=== PATIENT | female | born 1940 | race Caucasian/White ===

== ENCOUNTER 2018-08-20 21:47 | Emergency (ER) | payer OTHER ==
[~2018-08-20] VITALS: Ht 154.9 cm; Wt 67.1 kg
[2018-08-20] MEDS ORDERED: FAMOTIDINE 20 MG TAB PO ONE (22:15)
[2018-08-20] MEDS ORDERED: cloNIDine HCL 0.1 MG TAB PO ONE (22:15)
[2018-08-20 22:29] LABS: Basophils # (auto) 0 uL; Basophils % (auto) 0.5 % (0.0-2.0); Eosinophils # (auto) 0.4 uL; Eosinophils % (auto) 5.5 % (0.0-7.0); Hematocrit 42.9 % (36.0-46.0); Lymphocytes # (auto) 1.4 uL; Lymphocytes % (auto) 16.9 % (10.0-50.0); Mean Corpuscular Hemoglobin 31.6 pg (28.0-32.0); Mean Corpuscular Hgb Conc. 32.6 g/dL (32.0-36.0); Mean Corpuscular Volume 96.9 fL (80.0-100.0); Monocytes # (auto) 0.8 uL; Monocytes % (auto) 9.6 % (0.0-12.0); Neutrophils # (auto) 5.4 uL; Neutrophils % (auto) 67.5 % (37.0-80.0); Nucleated Red Blood Cells % 0.1 %; Platelet Count (auto) 197 10^3/uL (140-450); Red Blood Cells 4.43 10^6/uL (4.0-5.20); Red Cell Distribution Width 13.2 % (11.8-14.3)
[2018-08-20 22:46] LABS: Albumin 3.8 g/dL (3.4-5.0); Amylase 38 U/L (25-115); Anion Gap 8 (5-15); Blood Urea Nitrogen 21 mg/dL (7-18); Calcium 9.4 mg/dL (8.5-10.1); Carbon Dioxide 24 mmol/L (21-32); Chloride 109 mmol/L (98-107); Glucose 105 mg/dL (74-106); Lipase 84 U/L (73-393); Potassium 3.6 mmol/L (3.5-5.1); Sodium 141 mmol/L (136-145)
[2018-08-20 22:53] LABS: Alanine Aminotransferase 13 U/L (13-56); Alkaline Phosphatase 74 U/L (45-117); Aspartate Aminotransferase 14 U/L (15-37); BUN/Creatinine Ratio 27.6; Bilirubin, Total 0.8 mg/dL (0.2-1.0); GFR African American 95 mL/min; GFR Non-African American 79 mL/min; Total Protein 7.3 g/dL (6.4-8.2)
[2018-08-21 02:21] LABS: Urine Bacteria MANY /hpf (None Seen); Urine Blood Negative /uL (Negative); Urine Hyaline Cast FEW /lpf (0 - 2); Urine Mucus FEW (None Seen); Urine Specific Gravity 1.012 (1.001-1.035); Urine WBC 23 /hpf (0 - 5)
[2018-08-21] MEDS ORDERED: LABETALOL HCL 5 MG/ML ML 20ML VIAL IV ONE (02:30)
[2018-08-21] MEDS ORDERED: hydrALAZINE HCL 20 MG/ML VL IV ONE (04:15)
[2018-08-21 04:53] VITALS: BP 135/73
== END 2018-08-21 05:10 | disposition home or self-care (01) ==
LOC: ER 21:47
DX: N39.0 Urinary tract infection, site not specified (principal); K42.9 Umbilical hernia without obstruction or gangrene; K44.9 Diaphragmatic hernia without obstruction or gangrene; N28.1 Cyst of kidney, acquired; K59.00 Constipation, unspecified; I10 Essential (primary) hypertension; Z90.49 Acquired absence of other specified parts of digestive tract
CPT/HCPCS: 36415; 74176; 80053; 81001; 82150; 83690; 84484; 85025; 96374; 96375; 99284; J0360

== ENCOUNTER 2019-04-17 17:11 | Emergency (ER) | payer OTHER ==
[~2019-04-17] VITALS: Ht 157.5 cm; Wt 68.0 kg
[2019-04-17 22:00] VITALS: BP 145/61
== END 2019-04-17 22:12 | disposition home or self-care (01) ==
LOC: ER 17:16
DX: M79.642 Pain in left hand (principal); I10 Essential (primary) hypertension; M79.18 Myalgia, other site; Z90.49 Acquired absence of other specified parts of digestive tract

== ENCOUNTER 2020-04-21 17:02 | Inpatient (IN) | payer OTHER ==
[~2020-04-21] VITALS: Ht 160 cm; Wt 75.3 kg
[2020-04-21 18:27] LABS: Basophils # (auto) 0.1 10 ^3/uL (0-0.2); Basophils % (auto) 0.8 % (0.0-2.0); Eosinophils # (auto) 0.2 10 ^3/uL (0-0.8); Eosinophils % (auto) 2.1 % (0.0-7.0); Hematocrit 39.4 % (36.0-46.0); Hemoglobin 13.1 g/dL (12.2-16.2); Lymphocytes % (auto) 11.3 % (10.0-50.0); Mean Corpuscular Hemoglobin 30.3 pg (28.0-32.0); Mean Corpuscular Hgb Conc. 33.1 g/dL (32.0-36.0); Mean Corpuscular Volume 91.5 fL (80.0-100.0); Monocytes # (auto) 1.2 10 ^3/uL (0-1.3); Monocytes % (auto) 13.9 % (0.0-12.0); Neutrophils # (auto) 6.2 10 ^3/uL (1.6-8.6); Neutrophils % (auto) 71.9 % (37.0-80.0); Platelet Count (auto) 224 10^3/uL (140-450); Red Blood Cells 4.31 10^6/uL (4.0-5.20); Red Cell Distribution Width 13.9 % (11.8-14.3); White Blood Cell 8.7 10^3/uL (4.4-10.8)
[2020-04-21] MEDS ORDERED: PIPERACILLIN-TAZOB 3.375GM 100 ML IV ONE (18:30)
[2020-04-21] MEDS ORDERED: SODIUM CHLORIDE 0.9% 1,000 ML IV ONE ×2 (18:30→22:45)
[2020-04-21 18:42] LABS: INR 1.05 (0.9-1.15); Partial Thromboplastin Time 26.6 sec (23.0-31.2)
[2020-04-21 18:48] LABS: Albumin 3.3 g/dL (3.4-5.0); Anion Gap 7 (5-15); Blood Urea Nitrogen 35 mg/dL (7-18); Calcium 9.2 mg/dL (8.5-10.1); Carbon Dioxide 23 mmol/L (21-32); Chloride 109 mmol/L (98-107); Glucose 97 mg/dL (74-106); Magnesium 2.4 mg/dL (1.6-2.6); Potassium 3.7 mmol/L (3.5-5.1); Sodium 139 mmol/L (136-145)
[2020-04-21 18:56] LABS: Alanine Aminotransferase 26 U/L (13-56); Alkaline Phosphatase 82 U/L (45-117); Aspartate Aminotransferase 20 U/L (15-37); BUN/Creatinine Ratio 36.8; Bilirubin, Total 0.7 mg/dL (0.2-1.0); Blood Alcohol < 3.0 mg/dL (0-5); GFR African American 73 mL/min; GFR Non-African American 61 mL/min; Total Protein 6.4 g/dL (6.4-8.2)
[2020-04-21 20:07] LABS: Urine WBC None Seen /hpf (0 - 5)
[2020-04-21] MEDS ORDERED: IOHEXOL 350 MG/ML 100ML IJ ONE (20:27)
[2020-04-21 20:41] LABS: Alcohol, Urine < 3.0 mg/dL (0-10); Amphetamine Screen, Urine NEGATIVE (NEGATIVE); Barbiturate Scree,Urine NEGATIVE (NEGATIVE); Benzodiazephine Screen, Urine NEGATIVE (NEGATIVE); Cannabinoid Screen, Urine NEGATIVE (NEGATIVE); Cocaine Screen, Urine NEGATIVE (NEGATIVE); Opiate Scree,Urine NEGATIVE (NEGATIVE); Phencyclidine Screen, Urine NEGATIVE (NEGATIVE)
[2020-04-21 20:48] LABS: Urine Bacteria NONE SEEN /hpf (None Seen); Urine Blood Negative /uL (Negative); Urine Specific Gravity 1.023 (1.001-1.035)
[2020-04-21] MEDS ORDERED: DexAMETHasone SOD PHOS 10MG/1ML VIAL INJ IV ONE (22:30)
[2020-04-21] MEDS ORDERED: SODIUM CHLORIDE 0.9% 1,000 ML IV SCH (22:36)
[2020-04-21] MEDS ORDERED: DOCUSATE SOD 100 MG CAP PO PRN (22:45)
[2020-04-21] MEDS ORDERED: ONDANSETRON HCL 4 MG/2 ML VIAL IV PRN (22:45)
[2020-04-21] MEDS ORDERED: cefTRIAXone 1GM/50ML D5W 50 ML IV SCH (23:00)
[2020-04-22] MEDS ORDERED: LORazepam 2MG/ML-1ML VIAL IV ONE (06:15)
[2020-04-22 07:03] LABS: Calcium 9.2 mg/dL (8.5-10.1); Potassium 3.8 mmol/L (3.5-5.1)
[2020-04-22 07:06] LABS: BUN/Creatinine Ratio 39.1
[2020-04-22] MEDS: HALOPERIDOL LACTATE 5 MG/ML INJ VIAL IM PRN (07:30)
[2020-04-22] MEDS ORDERED: LORazepam 2MG/ML-1ML VIAL IV PRN (09:15)
[2020-04-22] MEDS: LISINOPRIL 5 MG TAB PO SCH (10:00)
[2020-04-22] MEDS ORDERED: ASPirin 81 mg TAB PO SCH (10:00)
[2020-04-22 10:14] LABS: Basophils # (auto) 0 10 ^3/uL (0-0.2); Basophils % (auto) 0.4 % (0.0-2.0); Eosinophils # (auto) 0 10 ^3/uL (0-0.8); Eosinophils % (auto) 0.1 % (0.0-7.0); Hematocrit 43.6 % (36.0-46.0); Hemoglobin 14.5 g/dL (12.2-16.2); Lymphocytes # (auto) 0.4 10 ^3/uL (0.4-5.4); Lymphocytes % (auto) 6.2 % (10.0-50.0); Mean Corpuscular Hemoglobin 30.6 pg (28.0-32.0); Mean Corpuscular Hgb Conc. 33.1 g/dL (32.0-36.0); Mean Corpuscular Volume 92.2 fL (80.0-100.0); Monocytes # (auto) 0.2 10 ^3/uL (0-1.3); Monocytes % (auto) 2.9 % (0.0-12.0); Neutrophils # (auto) 6.3 10 ^3/uL (1.6-8.6); Neutrophils % (auto) 90.4 % (37.0-80.0); Nucleated Red Blood Cells % 0.1 %; Platelet Count (auto) 222 10^3/uL (140-450); Red Blood Cells 4.73 10^6/uL (4.0-5.20); Red Cell Distribution Width 13.7 % (11.8-14.3); White Blood Cell 6.9 10^3/uL (4.4-10.8)
[2020-04-22 13:00] VITALS: BP 160/63
--- NOTE | 2020-04-22 15:38 | NUR ---
ADMISSION ASSESSMENT UNABLE TO COMPLETE ADMISSION ASSESSMENT INTERVENTIONS AT THIS TIME. PATIENT NOT ALERT OR ORIENTED. UNABLE TO REACH AT PHONE NUMBER PROVIDED IN CHART. WILL NOTIFY PRIMARY RN.
[2020-04-22 15:42] LABS: Folate (Folic Acid) 8.53 ng/mL (5.38-24)
--- NOTE | 2020-04-22 15:45 | NUR ---
EEG COMPLETED AT BEDSIDE. PRIMARY RN CARRIE DELUNA.
--- NOTE | 2020-04-22 16:06 | NUR ---
arrived to floor from ER approx. 1230. oriented to self only. received to room 214A , vss. sitter at bedside. continuing to monitor closely.
[2020-04-22 17:00] VITALS: BP 168/78
[2020-04-22] MEDS: ATORVASTATIN 20 MG TAB PO SCH (17:27)
--- NOTE | 2020-04-22 19:30 | NUR ---
RECEIVED PATIENT FROM DAY SHIFT RN. PATIENT RESTING IN BED WITH EYES CLOSED. NO S/S OF DISTRESS NOTED. WOKE PATIENT UP, DENIED PAIN AT THIS TIME. REORIENTED PATIENT ON TIME, PLACE, AND SITUATION. REORIENT NEEDED. POC INSTRUCTED AND ENCOURAGED PATIENT TO CALL FOR PATIENT CARE DIRECTOR IF NEEDED. BED IN LOWEST LOCKED POSITION WITH SIDE RAILS UP X 2 CALL [facility] WITHIN REACH. ALARM ON. SITTER AT BEDSIDE FOR SAFETY. CONTINUE TO MONITOR FOR CHANGES Q1H AND PRN.
[2020-04-22 22:00] VITALS: BP 124/77
[2020-04-22] MEDS: APIXABAN 2.5 MG TAB PO SCH (22:07)
--- NOTE | 2020-04-22 22:35 | NUR ---
ORAL MEDICATIONS GIVEN ORDERED. PATIENT SWALLOWED WELL. NO S/S OF ASPIRATION NOTED. CONTINUE TO MONITOR.
--- NOTE | 2020-04-23 03:16 | NUR ---
PATIENT SLEEPING. NO S/S OF DISTRESS NOTED. WARREN CATH IN PLACE DRAINING TO GRAVITY. SITTER AT BEDSIDE FOR SAFETY. CONTINUE TO MONITOR.
[2020-04-23] MEDS: ACETAMINOPHEN 325 MG TAB PO PRN ×2 (04:45→14:34)
--- NOTE | 2020-04-23 04:45 | NUR ---
PATIENT'S FEVER 102.6. MEDICATED PATIENT ORDERED. ICE PACKS AND COOLING MEASURE APPLIED. CONTINUE TO MONITOR. Addendum: 04/23/20 at 0617 by Arielle Andersen RN WRONG NOTES
[2020-04-23 05:00] VITALS: BP 143/72
[2020-04-23 08:00] VITALS: BP 156/75
[2020-04-23] MEDS: APIXABAN 2.5 MG TAB PO SCH ×2 (09:34→22:10)
[2020-04-23] MEDS: LISINOPRIL 5 MG TAB PO SCH ×2 (09:34→22:10)
--- NOTE | 2020-04-23 11:51 | NUR ---
PT STEP DAUGHTER TERESITA VALLADARES [phone]
[2020-04-23 13:00] VITALS: BP 134/71
[2020-04-23 17:00] VITALS: BP 135/73
--- NOTE | 2020-04-23 17:38 | NUR ---
PT POSITIVE FOR MRSA IN NARES. DR. SHIELDS NOTIFIED, NEW ORDERS NOTED.
[2020-04-23] MEDS: ATORVASTATIN 20 MG TAB PO SCH (18:10)
[2020-04-23] MEDS: MUPIROCIN 2% OINT 15gm or 22gm EACHNOSTRI SCH (22:09)
[2020-04-23] MEDS: HALOPERIDOL LACTATE 5 MG/ML INJ VIAL IM PRN (23:06)
[2020-04-24 05:00] VITALS: BP 132/73
--- NOTE | 2020-04-24 09:17 | NUR ---
Assessment Patient is a 79-year-old female who is confused. Assessment was completed with patient Prince . Per Prince prior to admission patient lived home with him and functioned with assistance. Patient has a wheelchair for home use. Advised patient there is a home health order for safety evaluation and physical therapy. Per Prince he is considering placing his but she only receives an amount of 1600 from [facility]. Per Prince he would like resources for private caregiver. Informed patient I can refer patient to Mesha with [facility] who can assist with placement or caregivers. Informed Prince clinical information will [facility] fax[facility] to [facility]. Informed Prince he has a right to participate in all discharge planning. Prince verbalized understanding and agreed to discharge plan home. Faxed clinical information to [facility], [facility] and [facility]. Per Karyn with [facility] patient has been accepted and service to start within 24-48hrs upon d/c day. Per Mesha with [facility] she will contact patient. Addendum: 04/24/20 at 0926 by LORIN NUNN Amended: Links added.
[2020-04-24] MEDS ORDERED: LISI-275 PO (10:21)
[2020-04-24] MEDS ORDERED: APIX2.5T PO (10:21)
[2020-04-24] MEDS ORDERED: ATOR20TA50 PO (10:21)
[2020-04-24] MEDS: LISINOPRIL 5 MG TAB PO SCH (10:32)
[2020-04-24] MEDS: MUPIROCIN 2% OINT 15gm or 22gm EACHNOSTRI SCH (10:32)
[2020-04-24] MEDS: APIXABAN 2.5 MG TAB PO SCH (10:32)
--- NOTE | 2020-04-24 11:06 | NUR ---
D/C Planning Contact patient Prince and Step-daughter Cecilia via conference call and they decided patient will return home with private caregivers and if later on Prince feels he is unable to care for patient they will contact Mesha with [facility] and place patient. Received a follow up called from Mesha with [facility] advising me she contact patient Prince and step-daughter Cecilia and they will be providing patient with private caregiver upon d/c day. Placed call to CHARLES Dunn with [facility] group advising her patient will be going home with home health and private caregiver. Informed CHARLES Dunn of accepting home health agency. Informed bed side nurse. Patient Prince and Cecilia verbalize understanding d/c plan.
[2020-04-24] MEDS: ACETAMINOPHEN 325 MG TAB PO PRN (12:08)
[2020-04-24 14:48] VITALS: BP 126/81
--- NOTE | 2020-04-24 15:32 | NUR ---
PT DISCHARGE INSTRUCTIONS GIVEN. IV AND TELE BOX, KELVIN, REMOVED. PT BILL INFORMED VIA TELEPHONE THAT PT IS READY FOR DIGITAL DESIGN ENGINEER, AND ALSO THAT SHE HAS RX IN [facility]. VERBALIZED HE WILL DIGITAL DESIGN ENGINEER MEDICATIONS IN PHARMACY. PT DISCHARGED HOME WITH FAMILY.
== END 2020-04-24 15:20 | disposition home health service (06) | DRG 72 ==
LOC: EDBD 17:02 → ER 17:02 → TELE 17:03 → TELE-CENTR 04-22 12:10
PROVIDERS: ADMIT Hospitalist; ATTEND Hospitalist
DX: G93.41 Metabolic encephalopathy (principal); F01.50 Vascular dementia, unspecified severity, without behavioral disturbance, psychotic disturbance, mood disturbance, and anxiety; G30.9 Alzheimer's disease, unspecified; F02.80 Dementia in other diseases classified elsewhere, unspecified severity, without behavioral disturbance, psychotic disturbance, mood disturbance, and anxiety; I10 Essential (primary) hypertension; Z20.828 Contact with and (suspected) exposure to other viral communicable diseases; Z79.82 Long term (current) use of aspirin; Z79.899 Other long term (current) drug therapy; Z86.73 Personal history of transient ischemic attack (TIA), and cerebral infarction without residual deficits; Z90.49 Acquired absence of other specified parts of digestive tract
CPT/HCPCS: 36415; 70450; 71045; 71275; 80048; 80053; 80061; 80307; 80320; 81001; 82607; 82746; 83605; 83735; 83880; 84443; 84484; 85025; 85379; 85610; 85730; 87040; 87081; 87086; 87426; 93005; 93886; 95819; 97110; 97116; 97163; 97530; G0378; J0696; J1100; J2543